=== PATIENT | male | born 1975 | race Two or more races ===

== ENCOUNTER 2017-01-14 12:42 | Emergency (ER) | payer SELFPAY ==
[~2017-01-14] VITALS: Ht 175.3 cm; Wt 90.7 kg
[~2017-01-14 12:42] MED LIST: none at this time
[2017-01-14 14:10] LABS: BASO # 0.1 x10^3/uL (0.0-0.2); BASO % 1 % (0-3); EOS % 2 % (0-3); HEMATOCRIT 48.1 % (39.0-53.0); HEMOGLOBIN 16.6 g/dL (13.0-17.5); LYMPH # 2.9 x10^3/uL (1.0-4.8); LYMPH % 23 % (24-48); MEAN CORPUSCULAR HEMOGLOBIN 30 pg (25-35); MEAN CORPUSCULAR HGB CONC 35 g/dL (31-37); MEAN CORPUSCULAR VOLUME 87 fL (79-100); MONO % 7 % (0-9); NEUT % 67 % (31-73); PLATELET COUNT 225 x10^3/uL (140-400); RED BLOOD COUNT 5.56 x10^6/uL (4.30-5.70); RED CELL DISTRIBUTION WIDTH 13.1 % (11.5-14.5); WHITE BLOOD COUNT 12.9 x10^3/uL (4.0-11.0)
--- NOTE | 2017-01-14 14:10 | EKG ---
[facility] [address] [place] [address] Test Date: 2017-01-14 Test Time: 14:00:24 Pat Name: PAULINE MARQUIS Department: Room: Gender: Parks Worker: : 1975 Requested By: QUAN ALLEN Order Number: [id number] Reading MD: Brisa Ho Measurements Intervals [place] Rate: 93 P: 11 IA: 156 QRS: 9 QRSD: 84 T: -2 QT: 328 QTc: 410 Interpretive Statements SINUS RHYTHM NORMAL EKG Electronically Signed On 01-18-2017 9:21:34 CDT by Brisa Ho
--- NOTE | 2017-01-14 14:40 | RAD ---
Indication shortness of air. Dizziness. A single view of the chest was obtained and is compared to a study 01/13/2014. The heart and pulmonary vessels are normal. The lungs are clear of acute infiltrates. There is no pleural fluid or pneumothorax. The bony structures appear grossly intact. IMPRESSION: No acute or focal process seen in the chest
[2017-01-14 14:45] LABS: BILIRUBIN,URINE NEGATIVE (NEG); GLUCOSE,URINE >=1000 mg/dL (NEG); NITRITE,URINE NEGATIVE (NEG); PH,URINE 5.5; PROTEIN,URINE NEGATIVE (NEG-TRACE); UROBILINOGEN,URINE 0.2 mg/dL (0.2 mg/dL)
[2017-01-14 14:52] LABS: CALCIUM 9.8 mg/dL (8.5-10.1); CREATININE 0.9 mg/dL (0.7-1.3); GFR 93.5; POTASSIUM 3.6 mmol/L (3.5-5.1)
[2017-01-14 14:53] LABS: BACTERIA,URINE 0 /HPF (0-FEW); RBC,URINE 0 /HPF (0-2); SQUAMOUS EPITHELIAL CELL,UR FEW /LPF; WBC,URINE RARE /HPF (0-4)
[2017-01-14 14:55] LABS: BARBITURATES NEG (NEG); BENZODIAZEPINES NEG (NEG); CANNABINOIDS NEG (NEG); COCAINE NEG (NEG); METHADONE NEG (NEG); OPIATES NEG (NEG); PHENCYCLIDINE NEG (NEG)
[2017-01-14 14:56] LABS: ALBUMIN 4.5 g/dL (3.4-5.0); ALBUMIN/GLOBULIN RATIO 1.4 (1.0-1.7); TOTAL BILIRUBIN 0.6 mg/dL (0.2-1.0); TOTAL PROTEIN 7.8 g/dL (6.4-8.2)
[2017-01-14] MEDS ORDERED: IV NORMAL SALINE 1000ML BAG 1,000 ML IV ONE (15:15)
[2017-01-14] MEDS ORDERED: metFORMIN 500 MG TABLET PO ONE (15:45)
[2017-01-14] MEDS ORDERED: METF500T4 PO (16:34)
[2017-01-14 16:56] VITALS: BP 124/73
--- NOTE | 2017-01-14 18:35 | ED.ADGEN ---
Past Medical History Past Medical History: No Pertinent History Past Surgical History: Other Additional Past Surgical Histo: r leg Alcohol Use: None Drug Use: None Adult General Chief Complaint Chief Complaint: DIZZY/LIGHT HEADED HPI HPI Patient is a 41 year old man, with no reported medical history, who is primarily Serbian-speaking, who presents emergency Department with complaint of dizziness over the past several days, described as a feeling of lightheadedness and presyncope, without any syncope that occurred. He denies any chest pain or shortness breath, any nausea or vomiting, states that he's had increased urination, increased thirst, and weight loss over the past several weeks. Also occasional blurred vision. No headache. Denies any focal weakness, numbness or tingling, any chest pain or shortness breath, any fevers or chills, any burning or pain with urination, any injuries. He works as a painter hand. Denies any family history of cardiac disease or diabetes. Denies any drugs, alcohol or cigarette use. Does not take any medications regular basis. Review of Systems Review of Systems Constitutional: Denies fever or chills. [] Eyes: Denies change in visual acuity. [] HENT: Denies nasal congestion or sore throat. [] Respiratory: Denies cough or shortness of breath. [] Cardiovascular: Denies chest pain or edema. [] GI: Denies abdominal pain, nausea, vomiting, bloody stools or diarrhea. [] : Denies dysuria. [] Musculoskeletal: Denies back pain or joint pain. [] Integument: Denies rash. [] Neurologic: Denies headache, focal weakness or sensory changes. [ Lightheadedness, near-syncope. Occasional blurred vision. Endocrine: Polyuria and polydipsia over the past several weeks. Lymphatic: Denies swollen glands. [] Psychiatric: Denies depression or anxiety. [] Current Medications Current Medications Current Medications Medications (Trade) Dose Ordered Sig/Serafin Start Time Stop Time Status Last Admin Dose Admin Metformin HCl (Glucophage) 500 mg 1X ONCE 01/14/17 15:45 01/14/17 15:46 DC 01/14/17 15:30 500 MG Sodium Chloride 1,000 ml @ 1,000 mls/hr 1X ONCE 01/14/17 15:15 01/14/17 16:14 DC 01/14/17 15:31 1,000 MLS/HR Allergies Allergies Allergies Coded Allergies Type Severity Reaction Last Updated Verified No Known Drug Allergies 01/12/14 No Physical Exam Physical Exam Constitutional: Well developed, well nourished, no acute distress, non-toxic appearance. [] HENT: Normocephalic, atraumatic, bilateral external ears normal, oropharynx moist, no oral exudates, nose normal. [] Eyes: PERRLA, EOMI, conjunctiva normal, no discharge. [] Neck: Normal range of motion, no tenderness, supple, no stridor. [] Cardiovascular:Heart rate regular rhythm, no murmur S1, S2, rubs or gallops. [] Lungs & Thorax: Bilateral breath sounds clear to auscultation [] Abdomen: Bowel sounds normal, soft, no tenderness, no rebound, rigidity, no guarding, no masses, no pulsatile masses. [] Skin: Warm, dry, no erythema, no rash. [] Back: No tenderness, no CVA tenderness. [] Extremities: No tenderness, no cyanosis, no clubbing, ROM intact, no edema. [] Negative Homans sign. Neurologic: Alert and oriented X 3, normal motor function, normal sensory function, no focal deficits noted. [] Psychologic: Affect normal, judgement normal, mood normal. [] Current Patient Data Vital Signs Vital Signs Date Time Temp Pulse Resp B/P (MAP) Pulse Ox O2 Delivery O2 Flow Rate FiO2 01/14/17 16:56 73 18 124/73 (90) 98 Room Air Lab Values Laboratory Tests Test 01/14/17 14:01 01/14/17 14:35 White Blood Count 12.9 x10^3/uL (4.0-11.0) H Red Blood Count 5.56 x10^6/uL (4.30-5.70) Hemoglobin 16.6 g/dL (13.0-17.5) Hematocrit 48.1 % (39.0-53.0) Mean Corpuscular Volume 87 fL (79-100) Mean Corpuscular Hemoglobin 30 pg (25-35) Mean Corpuscular Hemoglobin Concent 35 g/dL (31-37) Red Cell Distribution Width 13.1 % (11.5-14.5) Platelet Count 225 x10^3/uL (140-400) Neutrophils (%) (Auto) 67 % (31-73) Lymphocytes (%) (Auto) 23 % (24-48) L Monocytes (%) (Auto) 7 % (0-9) Eosinophils (%) (Auto) 2 % (0-3) Basophils (%) (Auto) 1 % (0-3) Neutrophils # (Auto) 8.7 x10^3uL (1.8-7.7) H Lymphocytes # (Auto) 2.9 x10^3/uL (1.0-4.8) Monocytes # (Auto) 1.0 x10^3/uL (0.0-1.1) Eosinophils # (Auto) 0.3 x10^3/uL (0.0-0.7) Basophils # (Auto) 0.1 x10^3/uL (0.0-0.2) Sodium Level 133 mmol/L (136-145) L Potassium Level 3.6 mmol/L (3.5-5.1) Chloride Level 97 mmol/L (98-107) L Carbon Dioxide Level 22 mmol/L (21-32) Anion Gap 14 (6-14) Blood Urea Nitrogen 17 mg/dL (8-26) Creatinine 0.9 mg/dL (0.7-1.3) Estimated GFR (Cockcroft-Gault) 93.5 BUN/Creatinine Ratio 19 (6-20) Glucose Level 343 mg/dL (70-99) H Calcium Level 9.8 mg/dL (8.5-10.1) Total Bilirubin 0.6 mg/dL (0.2-1.0) Aspartate Amino Transferase (AST) 23 U/L (15-37) Alanine Aminotransferase (ALT) 50 U/L (16-63) Alkaline Phosphatase 112 U/L (46-116) Troponin I Quantitative < 0.017 ng/mL (0.000-0.055) Total Protein 7.8 g/dL (6.4-8.2) Albumin 4.5 g/dL (3.4-5.0) Albumin/Globulin Ratio 1.4 (1.0-1.7) Urine Collection Type Unknown Urine Color Yellow Urine Clarity Clear Urine pH 5.5 Urine Specific [place] >=1.030 Urine Protein Negative mg/dL (NEG-TRACE) Urine Glucose (UA) >=1000 mg/dL (NEG) Urine Ketones (Stick) 40 mg/dL (NEG) Urine Blood Negative (NEG) Urine Nitrite Negative (NEG) Urine Bilirubin Negative (NEG) Urine Urobilinogen Dipstick 0.2 mg/dL (0.2 mg/dL) Urine Leukocyte Esterase Negative (NEG) Urine RBC 0 /HPF (0-2) Urine WBC Rare /HPF (0-4) Urine Squamous Epithelial Cells Few /LPF Urine Bacteria 0 /HPF (0-FEW) Urine Mucus Slight /LPF Urine Opiates Screen Neg (NEG) Urine Methadone Screen Neg (NEG) Urine Barbiturates Neg (NEG) Urine Phencyclidine Screen Neg (NEG) Urine Amphetamine/Methamphetamine Neg (NEG) Urine Benzodiazepines Screen Neg (NEG) Urine Cocaine Screen Neg (NEG) Urine Cannabinoids Screen Neg (NEG) Urine Ethyl Alcohol Neg (NEG) Laboratory Tests 01/14/17 14:01 Laboratory Tests 01/14/17 14:01 EKG EKG EC: Sinus rhythm, heart rate 93 beats/minute, patient with T-wave inversions noted in lead 3, mild baseline artifact, no ST elevation or depression noted, abnormal ECG, QTC of 410, MO 126, QRS of 84, does not meet STEMI criteria, no prior for comparison. As interpreted by me.[] Radiology/Procedures Radiology/Procedures [][facility] [address] [place] [address] IMAGING REPORT Signed PATIENT: PAULINE MARQUIS ACCOUNT: [id number] : 1975 LOCATION: ER AGE: 41 SEX: M EXAM STATUS: REG ER ORD. PHYSICIAN: QUAN ALLEN DO REASON: Near syncope PROCEDURE: PORTABLE CHEST 1V Indication shortness of air. Dizziness. A single view of the chest was obtained and is compared to a study 01/13/2014. The heart and pulmonary vessels are normal. The lungs are clear of acute infiltrates. There is no pleural fluid or pneumothorax. The bony structures appear grossly intact. IMPRESSION: No acute or focal process seen in the chest DICTATED and SIGNED BY: GINI MCKEE MD DATE: 01/14/17 3529 CC: QUAN ALLEN DO; NO PCP ~ Course & Med Decision Making Course & Med Decision Making Pertinent Labs and Imaging studies reviewed. (See chart for details) Patient with a glucose of 343, noted to have 40 ketones in the urine, but no anion gap or evidence of acidosis. Patient's history, examination, laboratory findings are consistent with a new diagnosis of type 2 diabetes mellitus. I did discuss these findings at bedside with patient in detail, he did receive IV fluids in the ED, is resting comfortably, with stable vital signs in the monitor. Nurse Cydney assisted with translation. Discussed with patient that findings are consistent with diabetes. Patient does not have any concerning findings at this time that would meet admission criteria, he does voice understanding with this, states he is feeling fine at this time, had negative orthostatics in the ED. Patient was given first dose of metformin the ED. He does not have a primary care provider, states that he will be able to follow-up , was given information for Dr. Kilgore, and also clinic information to establish follow-up, importance of follow-up for additional evaluation and management of his diabetes and general medical care, importance of taking medications as directed, and concerning symptoms that prompt return to the emergency department discussed in detail. She voiced understanding and agreement with plan as stated, tolerating by mouth fluids without issue in the ED. Was given instructions on general diabetes management, dietary instructions, and clear and detailed return instructions precautions as stated. Discharged home in stable condition with plan for management as above. Dragon Disclaimer Dragon Disclaimer This electronic medical record was generated, in whole or in part, using a voice recognition dictation system. Departure Impression: Primary Impression: Type 2 diabetes mellitus Disposition: 01 HOME, SELF-CARE Condition: STABLE Scripts Metformin Hcl (METFORMIN HCL) 500 Mg Tablet 500 MG PO BIDWMEALS for ANTI-DIABETIC, #60 TAB 0 Refills Prov: QUAN ALLEN DO 01/14/17 QUAN ALLEN DO Jan 14, 2017 18:35
== END 2017-01-14 17:00 | disposition home or self-care (01) ==
LOC: ER 12:42
DX: E11.9 Type 2 diabetes mellitus without complications (principal); R42 Dizziness and giddiness
CPT/HCPCS: 36415; 71010; 80053; 80307; 81001; 84484; 85025; 93005; 96360; 99285; J7030; G0479